=== PATIENT | female | born 1980 | race Caucasian/White ===

== ENCOUNTER 2016-09-15 20:25 | Emergency (ER) | payer BC, OTHER ==
[~2016-09-15] VITALS: Ht 175.3 cm; Wt 81.7 kg
[~2016-09-15 20:25] MED LIST: AMOXICILLIN 50500 MG PO; BIAXIN500 MG PO; BLACK COHOSH PO; CARISOPRODOL 3350 MG PO; CELEXA10 MG PO; CELEXA40 MG PO; CEPACOL SORE T1 EAC8 PO; CITRATE OF MAG296 ML PO; CLONAZEPAM 0.50.5 M1 PO; CLONAZEPAM2 MG PO; CLONIDINE0.1 PO; COLACE100 MG PO; DOXYCYCLINE 10100 MG PO; FENTANYL 1100 MCG/HR TRANSDERM; FLAGYL500 M1 PO; FLEXERIL PO; HYDROCODONE-AP1 EAC6 PO; LEVAQUIN 500 M500 MG PO; LEVAQUIN 750 M750 MG PO; LORTAB 10 MG-3473 ML PO; MIRALAX17 GM PO; NAPROSYN500 MG PO; NORCO 10-325 T1 EACH PO; NORCO 5-325 TA1 EACH PO; PERCOCET PO; PREDNISONE 20 M20 M1 PO; PROTONIX40 M1 PO; PYRIDIUM200 M2 PO; SEROQUEL 25 MG25 M1 PO; SEROQUEL300 MG PO; TRAMADOL 50 MG50 MG PO; TRILEPTAL150 MG PO; TRILEPTAL300 MG PO; TRILEPTAL600 MG PO; TYLENOL325 MG PO; VENTOLIN HFA 1818 GM INH; VOLTAREN GEL 1100 G2 TOP
[2016-09-15] MEDS ORDERED: ACYCLOVIR 400400 MG (20:39)
[2016-09-15] MEDS ORDERED: CARISOPRODOL 3350 MG PO (20:39)
[2016-09-15 21:06] LABS: URINE BILIRUBIN NEGATIVE (Negative); URINE BLOOD NEGATIVE (Negative); URINE COLOR YELLOW; URINE GLUCOSE-RANDOM* NEGATIVE (Negative); URINE KETONES NEGATIVE (Negative); URINE NITRITE NEGATIVE (Negative); URINE PROTEIN (DIPSTICK) NEGATIVE (Negative); URINE SPECIFIC GRAVITY >= 1.030 (1.003-1.035); URINE UROBILINOGEN 0.2 E.U./dl (0.2-1.0)
[2016-09-15 21:10] LABS: ABSOLUTE NEUTROPHILS 4.4 thou/uL (1.4-8.2); BASOPHILS 0.8 % (0.0-2.0); EOSINOPHILS 1.5 % (0.0-3.0); HEMATOCRIT 38.1 % (37.0-47.0); HEMOGLOBIN 13.2 gm/dL (12.0-15.0); LYMPHOCYTES 32.4 % (24.0-44.0); MANUAL DIFF NO; MCH 31.2 pg (26.0-34.0); MCHC 34.7 g/dL (28.0-37.0); MCV 89.7 fL (80.0-100.0); MONOCYTES 5.4 % (1.0-8.0); PLATELET COUNT 285 thou/uL (150-400); POLYS 59.9 % (36.0-66.0); RBC 4.25 mil/uL (4.20-5.00); RDW 12.4 % (10.5-14.5); WBC 7.4 thou/uL (4.0-11.0)
[2016-09-15 21:17] LABS: CALCIUM 8.4 mg/dL (8.5-10.1); CREATININE 0.7 mg/dL (0.6-1.0); POTASSIUM 3.8 mmol/L (3.5-5.1)
[2016-09-15 21:23] LABS: ALBUMIN 3.7 g/dL (3.4-5.0); TOTAL BILIRUBIN 0.2 mg/dL (<0.1-1.0); TOTAL PROTEIN 7.3 g/dL (6.4-8.2)
[2016-09-15] MEDS ORDERED: PEPCID20 MG PO (21:45)
[2016-09-15] MEDS ORDERED: CARAFATE 1 GM TA1 G1 PO (21:45)
[2016-09-15] MEDS ORDERED: MIRALAX17 GM PO (21:45)
[2016-09-15] MEDS ORDERED: REGLAN 10 MG TA10 MG PO (21:49)
== END 2016-09-15 22:12 | disposition home or self-care (01) ==
LOC: ER 20:25
PROVIDERS: Physician Assistant
DX: K29.60 Other gastritis without bleeding (principal); K59.00 Constipation, unspecified; Z98.890 Other specified postprocedural states; F41.9 Anxiety disorder, unspecified; F32.9 Major depressive disorder, single episode, unspecified; Z90.49 Acquired absence of other specified parts of digestive tract; Z90.710 Acquired absence of both cervix and uterus; Z88.6 Allergy status to analgesic agent; Z88.0 Allergy status to penicillin; Z88.2 Allergy status to sulfonamides; Z88.8 Allergy status to other drugs, medicaments and biological substances; F17.210 Nicotine dependence, cigarettes, uncomplicated

== ENCOUNTER 2017-02-27 23:39 | Emergency (ER) | payer BC, OTHER ==
[~2017-02-27] VITALS: Ht 170.2 cm; Wt 81.7 kg
[~2017-02-27 23:39] MED LIST changes: +ACYCLOVIR 400400 MG; +CARAFATE 1 GM TA1 G1 PO; +PEPCID20 MG PO; +REGLAN 10 MG TA10 MG PO
[2017-02-28 01:25] LABS: URINE BILIRUBIN NEGATIVE (Negative); URINE BLOOD NEGATIVE (Negative); URINE COLOR YELLOW; URINE GLUCOSE-RANDOM* NEGATIVE (Negative); URINE KETONES NEGATIVE (Negative); URINE LEUKOCYTES-REFLEX NEGATIVE (Negative); URINE PROTEIN (DIPSTICK) NEGATIVE (Negative); URINE SPECIFIC GRAVITY 1.025 (1.003-1.035); URINE UROBILINOGEN 0.2 E.U./dl (0.2-1.0)
[2017-02-28 01:33] LABS: AMP/METHAMP Negative (Negative); BARBITURATES Negative (Negative); BENZODIAZEPINES POSITIVE (Negative); COCAINE Negative (Negative); METHADONE Negative (Negative); OPIATES POSITIVE (Negative); PCP Negative (Negative); THC Negative (Negative)
[2017-02-28] MEDS ORDERED: MEDROLDOSEPACK PO (01:42)
[2017-02-28] MEDS ORDERED: NAPROSYN500 MG PO (01:42)
[2017-02-28] MEDS ORDERED: ULTRAM 50MG TAB50 MG PO (02:00)
== END 2017-02-28 02:14 | disposition home or self-care (01) ==
LOC: ER 23:39
PROVIDERS: Emergency Medicine
DX: G89.29 Other chronic pain (principal); M54.5 Low back pain; F32.9 Major depressive disorder, single episode, unspecified; F41.9 Anxiety disorder, unspecified; F17.210 Nicotine dependence, cigarettes, uncomplicated; Z87.01 Personal history of pneumonia (recurrent); Z90.710 Acquired absence of both cervix and uterus; Z98.890 Other specified postprocedural states; Z88.2 Allergy status to sulfonamides; Z88.0 Allergy status to penicillin; Z88.8 Allergy status to other drugs, medicaments and biological substances

== ENCOUNTER 2017-06-23 12:43 | Inpatient (IN) | payer BC, OTHER ==
[~2017-06-23] VITALS: Ht 170.2 cm; Wt 89.8 kg
[~2017-06-23 12:43] MED LIST changes: +MEDROLDOSEPACK PO; +ULTRAM 50MG TAB50 MG PO
[2017-06-23 19:50] VITALS: BP 105/64
[2017-06-23 23:55] VITALS: BP 136/69
[2017-06-24 02:15] LABS: URINE BILIRUBIN NEGATIVE (Negative); URINE BLOOD 1+ (Negative); URINE CLARITY CLEAR; URINE COLOR YELLOW; URINE GLUCOSE-RANDOM* NEGATIVE (Negative); URINE KETONES NEGATIVE (Negative); URINE NITRITE-REFLEX NEGATIVE (Negative); URINE PROTEIN (DIPSTICK) NEGATIVE (Negative); URINE SPECIFIC GRAVITY <= 1.005 (1.005-1.035); URINE UROBILINOGEN 0.2 E.U./dl (0.2-1.0)
[2017-06-24 02:16] LABS: URINE LEUKOCYTES-REFLEX 1+ (Negative)
[2017-06-24 02:29] LABS: BACTERIA-REFLEX 1-9 Few /HPF (None Seen); CASTS None Seen /LPF (None Seen); CRYSTALS None Seen /LPF (None Seen); MUCUS None Seen strn/LPF (None Seen); SQUAMOUS None Seen /LPF (0-3); URINE RBC 0-2 Rare /HPF (0-2); URINE WBC-REFLEX 0-5 Rare /HPF (0-5)
[2017-06-24 03:38] VITALS: BP 75/39
[2017-06-24 06:29] LABS: HEMATOCRIT 35.8 % (37.0-47.0); HEMOGLOBIN 12.3 gm/dL (12.0-15.0); MCH 31.9 pg (26.0-34.0); MCHC 34.4 g/dL (28.0-37.0); MCV 92.6 fL (80.0-100.0); RBC 3.87 mil/uL (4.20-5.00); RDW 12.7 % (10.5-14.5); WBC 6.6 thou/uL (4.0-11.0)
[2017-06-24 06:56] LABS: CALCIUM 8.5 mg/dL (8.5-10.1); CREATININE 0.7 mg/dL (0.6-1.0)
[2017-06-24 07:30] VITALS: BP 81/36
[2017-06-24 12:30] VITALS: BP 94/58
[2017-06-24 16:30] VITALS: BP 96/52
[2017-06-24 20:00] VITALS: BP 92/56
[2017-06-25 04:11] VITALS: BP 71/37
[2017-06-25 07:00] VITALS: BP 82/47
[2017-06-25 15:30] VITALS: BP 96/59
[2017-06-26 04:43] VITALS: BP 102/60
[2017-06-26 08:33] VITALS: BP 82/45
[2017-06-26] MEDS ORDERED: MIRALAX17 GM PO (09:01)
[2017-06-26] MEDS ORDERED: DURAGESIC1 EAC1 TRANSDERM (09:01)
[2017-06-26 09:34] VITALS: BP 82/45
== END 2017-06-26 12:41 | disposition home or self-care (01) | DRG 392 ==
LOC: 4E 12:43
PROVIDERS: Nurse Practitioner Acute Care
DX: K59.03 Drug induced constipation (principal); G89.29 Other chronic pain; F41.9 Anxiety disorder, unspecified; F32.9 Major depressive disorder, single episode, unspecified; F17.210 Nicotine dependence, cigarettes, uncomplicated; R33.9 Retention of urine, unspecified; M54.9 Dorsalgia, unspecified; T40.605A Adverse effect of unspecified narcotics, initial encounter; Z88.0 Allergy status to penicillin; Z88.2 Allergy status to sulfonamides; Z88.8 Allergy status to other drugs, medicaments and biological substances; Z90.49 Acquired absence of other specified parts of digestive tract; Z90.710 Acquired absence of both cervix and uterus; Z80.8 Family history of malignant neoplasm of other organs or systems; Z79.899 Other long term (current) drug therapy; Y92.89 Other specified places as the place of occurrence of the external cause; Z28.21 Immunization not carried out because of patient refusal
CPT/HCPCS: 10783; 27001